=== PATIENT | female | born 1960 | race Caucasian/White ===

== ENCOUNTER 2016-07-12 08:15 | Emergency (ER) | payer OTHER ==
[~2016-07-12] VITALS: Ht 167.6 cm; Wt 59.1 kg
[2016-07-12 08:18] VITALS: BP 131/84; PULSE 98; RESP 18; O2SAT 100
--- NOTE | 2016-07-12 09:30 | ED.REPORT ---
HPI-General Illness Date of Service Jul 12, 2016 ED Provider: Bayron Cohen DO The patient is a 55 year old female who presents to the emergency department requesting medical clearance for alcohol detox. The patient has a bed at [facility] at 1000 today. Her last drink was last night around midnight. She has been drinking a fifth of vodka per day. At this time she complains of anxiety, nausea, and shakiness. She has gone through detox in the past. She denies history of alcohol withdrawal seizures. She denies any recent drug use. Nursing Notes Stated Complaint: DETOX Chief Complaint: Substance Abuse Nursing Notes Reviewed: Yes Allergies: Coded Allergies: Sulfa (Sulfonamide Antibiotics) (Verified Allergy, Intermediate, body wide hives, 07/12/16) Scheduled Lorazepam (Ativan) 1 Mg Tablet 1 MG PO DIRECTED 2mg po Q6hrs x 24hrs, then 1mg po Q6hrs x 24hrs, [id number] po Q8hrs x 24hrs, [id number] po Q12hrs x 24hrs, then 1mg po General Time Seen by MD: 09:27 Chief Complaint Medical clearance Hx Obtained From: Patient Arrived By: Walk-in Sudden in Onset?: Yes Onset Occurred: 5 - 8 hours ago Context of Onset: EtOH use Symptom Duration: Since onset Quality: Painful Severity: Current: Severe Severity: Maximum: Moderate Recent Healthcare: No recent hospitalization Similar Sx Previous: Yes Past Medical History Past Medical History Alcohol abuse Past Surgical History Knee surgery Arm surgery Reports: Hysterectomy, Tonsillectomy Smoking History Current Every Day Smoker Social History Alcohol Use: >5 per day Other Social History: Local resident Occupation lives with roommate, works for [employer] but not this year because of the alcohol Ambulatory Status Independent Review of Systems Full Review of Systems GI: Reports: Nausea Neurologic: Reports: Shaking Psychiatric: Reports: Anxiety Complete sys rev & neg: except as marked. Physical Exam Vital Signs Vital Signs Date Time Temp Pulse Resp B/P Pulse Ox O2 Delivery O2 Flow Rate FiO2 07/12/16 11:31 36.4 92 17 127/68 99 Room Air 07/12/16 11:20 92 17 127/68 99 Room Air 07/12/16 08:18 36.4 98 18 131/84 100 Room Air Initial VS: Reviewed Head / Eyes: Atraumatic, Normocephalic, PERRL ENT: Mucous membranes moist, Conjunctiva normal, No scleral icterus Neck: Supple, Non-tender, Full range of motion Respiratory: Breath sounds normal, Clear to auscultation, No respiratory distress Cardiovascular: Regular rate & rhythm, Heart sounds normal, Intact distal pulses Abdomen / GI: Soft, Non-tender, No guarding, No rebound, No distention Lymphatic: No lymphadenopathy Extremities: Vascular intact, Neuro intact, No swelling, No tenderness Skin: Warm, Dry, No cyanosis Neurologic: Nonfocal Psychiatric: Mood/affect normal, Behavior normal General/Constitutional: Awake, Alert Behavior: Positive: Anxious, Tearful Mildly shaky Interpretation & Diagnostics Interpretation & Diagnostics: Urine drug screen positive for TCA Breathalyzer: 0 Lab Results Interpretation Test 07/12/16 08:37 Hold Urine Received (Received) Re-Eval/Medical Decision Med Decision/Clinical Course Alcohol abuse. Good candidate for crisis respite. We will start Ativan taper. Source of Hx: Old records Time of Eval: 09:34 Re-Evaluation/Progress Note: Medically cleared for crisis respite. Time of Eval: 11:26 Re-Evaluation/Progress Note: The patient will be discharged and taken to crisis respite via cab. Counseled Regarding: Diagnosis, Lab results, Need for follow-up, When/why to return to ED Discharge & Departure Primary Impression: Alcohol withdrawal Complication of substance-induced condition: with unspecified complication Qualified Code: F10.239 - Alcohol dependence with withdrawal, unspecified Disposition: Home Discharge Condition All VS Reviewed: Yes Condition: Stable Additional Instructions: Go directly to crisis respite. Take Ativan taper as prescribed. Return for any new or concerning symptoms. Referrals: NOPCP (PCP) Scribe Attestation Portions of this note were transcribed by Mary Lopes. I, Dr. Cohen personally performed the history, physical exam and medical decision-making; I reviewed and confirmed the accuracy of the information in the transcribed note. Signed by: Mele Fraga, 07/12/2016 and Bayron Ramon DO Jul 12, 2016 09:30 Mary Lopes Jul 12, 2016 09:35
[2016-07-12] MEDS ORDERED: LORazepam 2 mg Tablet PO ONE (09:35)
[2016-07-12 11:20] VITALS: BP 127/68; PULSE 92; RESP 17; O2SAT 99
[2016-07-12] MEDS ORDERED: LORA-303 PO (11:27)
[2016-07-12 11:31] VITALS: BP 127/68; PULSE 92; RESP 17; O2SAT 99
== END 2016-07-12 11:32 | disposition home or self-care (01) ==
LOC: SED 08:15
DX: F10.239 Alcohol dependence with withdrawal, unspecified (principal); F17.210 Nicotine dependence, cigarettes, uncomplicated; Z88.2 Allergy status to sulfonamides